=== PATIENT | female | born 1985 | race Caucasian/White ===

== ENCOUNTER → 2016-11-23 | Outpatient (CLI) | payer OTHER ==
[~2016-11-23] MED LIST: AMOXICILLIN500 M1 PO; FERROUS SULFAT325 MG PO; LABETALOL HCL200 MG PO; NOHOMEMEDS; PRENATAL TABLE1 EAC3 PO; THERAGRAN1 TABLET PO; WOMENS STOOL S100 MG PO; ZOFRAN4 MG PO
== END | disposition home or self-care (01) ==
LOC: RAD 11:39
DX: E04.2 Nontoxic multinodular goiter (principal); N92.6 Irregular menstruation, unspecified; R53.83 Other fatigue; R68.89 Other general symptoms and signs; Z85.850 Personal history of malignant neoplasm of thyroid
CPT/HCPCS: 76536